=== PATIENT | female | born 1950 | race Caucasian/White ===

== ENCOUNTER → 2018-01-29 | Outpatient (CLI) | payer MEDICARE, OTHER ==
[2018-01-29 10:09] LABS: PLATELET COUNT, AUTOMATED 238 K/uL (150-450)
[2018-01-29 10:35] LABS: LDL CHOLESTEROL 116 mg/dl
== END ==
LOC: LAB 09:42
PROVIDERS: ATTEND Nurse Practitioner Family
DX: I10 Essential (primary) hypertension (principal); E11.9 Type 2 diabetes mellitus without complications; R53.81 Other malaise; E78.2 Mixed hyperlipidemia; D51.0 Vitamin B12 deficiency anemia due to intrinsic factor deficiency; E55.9 Vitamin D deficiency, unspecified
CPT/HCPCS: 36415; 82040; 82247; 82306; 82310; 82374; 82435; 82465; 82565; 82607; 82947; 83036; 83718; 84075; 84132; 84155; 84295; 84443; 84450; 84460; 84478; 84520; 85025

== ENCOUNTER → 2018-04-02 | Outpatient (CLI) | payer MEDICARE, OTHER ==
--- NOTE | 2018-04-02 14:01 | RADIOLOGY IMAGING REPORT ---
FACILITY: [facility] PATIENT NAME: Darlene Ford : 1950 MR: [id number] V: [id number] EXAM DATE: ORDERING PHYSICIAN: KIMANI NORMAN TECHNOLOGIST: Location: [facility] [place] Patient: Darlene Ford : 1950 Visit/Account:[id number] Date of Sevice: 04/02/2018 HIP RIGHT Indication: Right hip pain Comparison: None available Findings: There is no acute fracture or dislocation of the right hip. The pelvis is intact. No significant degenerative changes are identified, the hips are symmetric.. Multiple surgical clips overlie the right groin. IMPRESSION: 1. Negative pelvis and right hip Report Dictated By: Duran Faria at 04/02/2018 1:56 PM Report E-Signed By: Duran Faria at 04/02/2018 1:57 PM WSN:[id number]
== END ==
LOC: RAD 12:19
PROVIDERS: ATTEND Nurse Practitioner Family
DX: M13.851 Other specified arthritis, right hip (principal)

== ENCOUNTER → 2019-03-24 | Outpatient (CLI) | payer MEDICARE, OTHER ==
[2019-03-24 10:10] LABS: PLATELET COUNT, AUTOMATED 240 K/uL (150-450)
[2019-03-24 10:24] LABS: LDL CHOLESTEROL 50 mg/dl
== END ==
LOC: LAB 09:37
PROVIDERS: ATTEND Nurse Practitioner Family
DX: M48.02 Spinal stenosis, cervical region (principal); E11.9 Type 2 diabetes mellitus without complications; R53.81 Other malaise; E78.2 Mixed hyperlipidemia; D51.0 Vitamin B12 deficiency anemia due to intrinsic factor deficiency; E78.00 Pure hypercholesterolemia, unspecified; I10 Essential (primary) hypertension; E55.9 Vitamin D deficiency, unspecified
CPT/HCPCS: 36415; 82040; 82247; 82306; 82310; 82374; 82435; 82465; 82565; 82947; 83036; 83718; 84075; 84132; 84155; 84295; 84443; 84450; 84460; 84478; 84520; 85025